=== PATIENT | male | born 2000 | race Caucasian/White ===

== ENCOUNTER 2025-04-04 00:26 | Emergency (ER) | payer OTHER, SELFPAY ==
--- NOTE | ~2025-04-04 | XR_ITS ---
Left Knee Technique: AP, lateral, and oblique views were obtained. Clinical History: Pain Findings: No fracture or dislocation is seen. Osseous alignment is anatomic. Joint spaces are preserv ed without degenerative or erosive change. Soft tissues are unremarkable. No joint effusion is seen. Impression: Unremarkable left knee radiographs. Reviewed, dictated and finalized at location . Impression: Unremarkable left knee radiographs.
--- NOTE | ~2025-04-04 | XR_ITS ---
Right Knee Technique: AP, lateral, and, oblique views were obtained. Clinical History: Pain Findings: No fracture or dislocation is seen. Osseous alignment is anatomic. Joint spaces are preserv ed without degenerative or erosive change. Soft tissues are unremarkable. No joint effusion is seen. Impression: Unremarkable right knee radiographs. Reviewed, dictated and finalized at location . Impression: Unremarkable right knee radiographs.
--- OUTSIDE RECORDS SUMMARY | 2025-04-04 00:29 | XMS_ITS | Clinical Summary ---
Author Organization [facility] Address [address] [place] [address] Care Team Providers Care Roofer Helper Name Role Phone Unavailable Primary Care Provider Unavailabl e Source Comments [facility],non-owned Affiliates and Associated Physician Practices is amultiple site organization consisting of ambulatory clinics and hospital sitesin [place], [place], [place] and [place]. This disclosure is being madepursuant to the Care Everywhere program and may not contain all information available regarding this patient. Last updated 18.[facility] [address] Allergies No known active allergies Medications * Be aware that medications may not be up to date on this document. Alwaysverify current medications with the patient. ibuprofen (MOTRIN) 600 MG tablet Take 600 mg by mouth every 6 hours as needed for Pain Active Active Problems Problem Noted Date Diagnosed Date Closed nondisplaced fracture of lateral malleolus of left fibula with routine healing 07/25/2018 Abdominal pain 02/10/2018 Lesley-Schlatter's disease 08/08/2015 Family History Medical History Relation Name Comments [place]<55(male) Maternal Grandfather [place]<55(male) Maternal Uncle Pacemaker Maternal Uncle Congenital Heart defect Mother Relation Name Status Comments Maternal Grandfather Maternal Uncle Mother Social History Tobacco Use Types Packs/Day Years Used Date Smoking Tobacco: Passive Smo ke Exposure - Never Smoker Smokeless Tobacco: Never Comments:Father smokes Alcohol Use Standard Drinks/Week Comments Not Asked 0 (1 standard drink = 0.6 oz pur e alcohol) Sex and Gender Information Value Date Recorded Sex Assigned at Not on file Legal Sex Male 12:10 PM CDT Gender Identity Not on file Sexual Orientation Not on file Last Filed Vital Signs Vital Sign Reading Time Taken Comments Blood Pressure 112/70 08/08/2015 10:44 AM CDT Pulse 76 08/08/2015 10:44 AM CDT Temperature - - Respiratory Rate 20 08/08/2015 10:4 4 AM CDT Oxygen Saturation - - Inhaled Oxygen Concentration - - Weight 64.4 kg (141 lb 15.6 oz) 06/27/2018 8:20 AM CDT short leg cast Height 169.1 cm (5' 6.58) 06/27/2018 8 :20 AM CDT Body Mass Index 22.52 06/27/2018 8:20 AM CDT Plan of Treatment Health Maintenance Due Date Last Done Comments HIV SCREENING 2017 HPV VACCINE (1 - Male 3-dose series) 2017 MENINGOCOCCAL (Group B) VACC INE SHARED DECISION-MAKING (1 of 2 - Standard) 2018 HEPATITIS C SCREENING 11/20/2020 DTAP/TDAP/TD VACCINES (1 - Tdap) 2021 HEPATITIS B VACCINE (1 of 3 - 19+ 3-dose series) 2021 COVID-19 VACCINE (1 - 2023-2 5 season) 2024 DEPRESSION SCREENING 11/08/2024 INFLUENZA VACCINE (Season Ended) 2025 ZOSTER VACCINE (1 of 2) 2052 HIB VACCINE Aged Out No longer eligi ble based on patient's age to complete this topic MENINGOCOCCAL GROUPS A/C/Y/W VACCINE Aged Out No longer eligible b ased on patient's age to complete this topic PNEUMOCOCCAL VACCINE Aged Out No long er eligible based on patient's age to complete this topic Insurance [facility] [place] [address]
[2025-04-04 00:30] VITALS: BP 141/73; PULSE 69; RESP 20; TEMP 36.7; O2SAT 100
[2025-04-04 03:43] VITALS: BP 133/82; PULSE 67; RESP 16; O2SAT 100
--- NOTE | 2025-04-04 04:31 | ED_ITS ---
HPI - Extremity Problem General Chief complaint: Extremity Problem,Nontraumatic Stated complaint: knees are hot to the touch Time Seen by Provider: 04/04/25 04:10 History of Present Illness HPI Narrative: 24-year-old otherwise healthy male presenting for bilateral knee pain for several months. Patient states he had x-rays done in physical therapy yesterday had significant improvement but was concerned that he was having recurrence of his knee pain. Pain is symmetric in both knees and no associated trauma. He states he gets some pain worse with certain manipulations and movements. No trauma or injury. He states that he has an appointment tomorrow with his primary doctor discussed this as well as recent x-ray imaging study that I do not have access to an he does not know the report of. He has been taking Tylenol without any significant relief of symptoms. No other anti-inflammatory measures. No injury or surgical history. No history of gout. He was otherwise healthy without any medical problems. Related Data Allergies Allergy/AdvReac Type Severity Reaction Status Date / Time No Known Allergies Allergy Unknown Unverified 04/04/25 00:34 Review of Systems Review of Systems: As reviewed above in HPI Exam Narrative: GENERAL: [Well-appearing, well-nourished, and in no acute distress.] HEAD: [Normocephalic, atraumatic.] EYES: [PERRLA and EOMI.] ENT: Nares clear, no rhinorrhea or epistaxis. Mucous membranes moist. NECK: Supple. CHEST: [Clear to auscultation. No respiratory distress.] HEART: [Regular rate and rhythm]. No murmur heard. [Normal peripheral pulses.] ABDOMEN: [Soft, nondistended], [nontender], [No rigidity or guarding] EXTREMITIES: Normal range of motion. [No edema.] No laxity with manipulation of both knees, tenderness to palpation over the inferior patella on the left side and right side, crepitus with flexion and extension of the left knee but not the right knee. Able to hold extent leg bilaterally. Plantar and dorsiflexion are full bilaterally. Able to ambulate. SKIN: Warm, dry, no rash. NEURO: [No focal deficits]. Alert and oriented [x3.] PSYCH: [Normal mood and affect.] Course Vital Signs Vital signs: Vital Signs Temperature 36.7 C 04/04/25 00:30 Pulse Rate 69 04/04/25 00:30 Respiratory Rate 20 04/04/25 00:30 Blood Pressure 141/73 H 04/04/25 00:30 Pulse Oximetry 100 04/04/25 00:30 Oxygen Delivery Room Air 04/04/25 00:30 Temperature 36.7 C 04/04/25 00:30 Pulse Rate 67 04/04/25 03:43 Respiratory Rate 16 04/04/25 03:43 Blood Pressure 133/82 04/04/25 03:43 Pulse Oximetry 100 04/04/25 03:43 Oxygen Delivery Room Air 04/04/25 00:30 MDM - Extremity (Nontraumatic) MDM Narrative Medical decision making narrative: 24-year-old otherwise healthy male presenting with bilateral knee pain. Nontraumatic in nature and going on for several months. He had x-rays and physical therapy yesterday with improvement but states this pain return. On examination his examination is reassuring with no osseous abnormalities deformities besides some crepitus in his left knee and palpable tenderness in the prepatellar region bilaterally. He has good range of motion and able to ambulate. Normal vital signs. No overlying skin changes or signs of cellulitis. X-rays were obtained of both knees to evaluate for any osseous abnormalities but likely no urgent or emergent concerns. He was given Toradol for analgesia and encouraged to keep his appointment with his PCP tomorrow upon workup completion and likely discharge home afterwards. Patient's x-rays were independently reviewed need not show any acute osseous abnormalities. Confirmed by radiology. Patient was discharged home with PCP follow-up today. Patient prescribed anti-inflammatory measures including ib uprofen 600 mg. Discharge Plan Discharge Clinical Impression: Bilateral anterior knee pain Patient Disposition: Home Condition: Stable Instructions: Antibiotic Form, Knee Pain (ED) Additional Instructions: X-ray showed no acute abnormalities. Follow-up with your doctor today/tomorrow. We will prescribe you anti-inflammatories including ibuprofen 600 mg to be taken every 8 hours as needed. Return with any emergent concerns. Patient Language: German Prescriptions: New ibuprofen 600 mg tablet 600 mg PO TID PRN (Reason: pain) Qty: 20 0RF Follow-up/Referrals: Elizabeth,MD Marjorie [Non-Staff] - Time of Disposition: 05:38
[2025-04-04] MEDS: KETOROLAC 30 MG/ML VIAL (*BKC) IM (04:57)
--- OUTSIDE RECORDS SUMMARY | 2025-04-04 05:39 | XMS_ITS | Clinical Summary ---
Author Organization [facility] Address [address] [place] [address] Care Team Providers Care Rn Tele Name Role Phone Unavailable Primary Care Provider Unavailabl e Source Comments [facility],non-owned Affiliates and Associated Physician Practices is amultiple site organization consisting of ambulatory clinics and hospital sitesin [place] and [place]. This disclosure is being madepursuant to the Care Everywhere program and may not contain all information available regarding this patient. Last updated 18.[facility] [employer] Allergies No known active allergies Medications * [...] Family History Medical History Relation Name Comments [place]<55(male) Maternal Grandfather [place]<55(male) Maternal Uncle Pacemaker Maternal Uncle Congenital Heart [...] patient's age to complete this topic Insurance [facility] [place] [address]
[2025-04-04 05:49] VITALS: BP 130/76; PULSE 62; RESP 16; TEMP 36.6; O2SAT 98
== END 2025-04-04 05:50 | disposition home or self-care (01) ==
PROVIDERS: Emergency Provider Student in an Organized Health Care Education/Training Program
DX: M25.562 Pain in left knee (principal); M25.561 Pain in right knee
CPT/HCPCS: 73562; 96372; 99284; J1885